=== PATIENT | male | born 1950 | race Caucasian/White ===

== ENCOUNTER 2018-03-04 16:34 | Day surgery (SDC) | payer OTHER ==
[2018-03-04] MEDS ORDERED: HYDROmorphONE/DILAUDID 2 MG/ML INJ ONE (17:43)
[2018-03-04] MEDS ORDERED: fentaNYL 100 MCG/2 ML INJ IVP PRN (17:57)
[2018-03-04] MEDS ORDERED: FLUMAZENIL 0.5 MG/5 ML MDV IVP PRN (17:57)
[2018-03-04] MEDS ORDERED: ALTEPLASE 2 MG VIAL IVP PRN (17:57)
[2018-03-04] MEDS ORDERED: HEPARIN 10,000 UNIT/10 ML MDV (1,000 UNIT/ML) IVP PRN (17:57)
[2018-03-04] MEDS ORDERED: PROTAMINE SULFATE 50 MG/5 ML VIAL IVP PRN (17:57)
[2018-03-04] MEDS ORDERED: NALOXONE HCL 0.4 MG/ML INJ IVP PRN (17:57)
[2018-03-04] MEDS ORDERED: MIDAZOLAM 2 MG/2 ML VIAL IVP PRN (17:57)
[2018-03-04] MEDS ORDERED: MEPERIDINE 25 MG/ML SYR IVP PRN (17:57)
[2018-03-04] MEDS ORDERED: HYDROmorphONE/DILAUDID 1 MG/ML INJ IVP PRN (18:00)
[2018-03-04] MEDS ORDERED: NS 1,000 ML IV SCH (18:00)
[2018-03-04] MEDS ORDERED: HYDROmorphONE/DILAUDID 2 MG/ML INJ IVP PRN ×2 (18:28→19:10)
--- NOTE | 2018-03-04 18:29 | PDPROPOC ---
Sedation Plan of Care Sedation Plan of Care: vital signs stable, mental status noted, patient educated of risks, benefits, alternatives, patient can tolerate sedation ASA Classification: ASA 2 Planned drugs: fentanyl, midazolam Mallampati Score: Class 2 Mallampati Reference Image: Patient passed 3-3-2 rule?: Yes
--- NOTE | 2018-03-04 18:35 | PDGENHP ---
History & Physical Chief Complaint: LT URETERAL STONE History of Present Illness: S/P ATTEMPTED RETROGRADE STONE REMOVAL. TIGHT LT URETERAL OBSTRUCTION. ANTEGRADE APPROACH NEEDED. Pertinent Past, Social, Family History: POST LT STENT PLACEMENT FOR URETERAL STONE. Relevant Physical Exam: LLQ PAIN Cardiorespiratory Assessment: CTA, RRR
[2018-03-04] MEDS ORDERED: ACETAMINOPHEN 325 MG TAB PO PRN (19:29)
[2018-03-04] MEDS ORDERED: ONDANSETRON 4 MG/2 ML VIAL IVP PRN (19:29)
--- NOTE | 2018-03-04 19:31 | PDRADPN ---
Radiology Procedure Note Date of Procedure: 03/04/18 Radiologist: Nancy Hoffmann Anesthesia: IV Sedation Pre-op Diagnosis: URETERAL STONE, LT Post-op Diagnosis: SAME Indication: COMPLETE OBSTRUCTION Procedure: ANTEGRADE NEPHROSTOGRAM WITH STENT PLACEMENT Finding(s): STENTED Inf/Abcess present in the surg proc area at time of surgery?: No
[2018-03-04 21:21] VITALS: BP 123/75
== END 2018-03-04 21:07 | disposition home or self-care (01) ==
LOC: FIMAGING 16:34
PROVIDERS: ATTEND Urology
PROC: 0T773DZ Dilation of Left Ureter with Intraluminal Device, Percutaneous Approach (ICD-10-PCS; principal; 2018-03-04 19:47)
DX: N13.2 Hydronephrosis with renal and ureteral calculous obstruction (principal)
CPT/HCPCS: 50694; 99152; C1729; C1769; C1892; J1170; J2250; J3010